=== PATIENT | female | born 1980 | race Caucasian/White ===

== ENCOUNTER → 2016-10-18 | Outpatient (CLI) | payer MEDICARE ==
[~2016-10-18] MED LIST: NITROFURANTOIN100 MG PO; NORCO 5-325 TA1 EACH PO; NORCO 7.5-3251 EACH PO
== END ==
LOC: KOH-I 14:42
DX: R06.2 Wheezing (principal); R06.00 Dyspnea, unspecified; R06.89 Other abnormalities of breathing; R05 Cough; J45.909 Unspecified asthma, uncomplicated
CPT/HCPCS: 71020